=== PATIENT | female | born 1935 | race Caucasian/White ===

== ENCOUNTER → 2017-09-25 | Outpatient (CLI) | payer OTHER ==
[~2017-09-25] MED LIST: ALEVE220 MG PO; AVALIDE 300-251 EACH; BACTRIM DS TAB1 EACH PO; BOUDREAUXS10 GM TOP; CALCIUM 600 +1 EAC1 PO; COZAAR 50 MG TA50 M2 PO; ECOTRIN325 MG PO; GABAPENTIN 100100 MG PO; GLUCOPHAGE XR500 MG PO; HYDROCHLOROTHIA25 M2 PO; LATANOPROST 0.2.5 ML OPHTHALMIC; LEVAQUIN 500 M500 M2 PO; LIDOCAINE 22 %/30 GM MM; MELATONIN5 M1 PO; NORCO 5-325 TA1 EAC1 PO; NORCO 5-325 TA1 EACH PO; NORVASC 2.5 MG2.5 M1 PO; OXYBUTYNIN 5 MG5 M2 PO; PHENERGAN 25 MG25 M1 PO; POTASSIUM20 PO; SANTYL OINTMENT30 G1 TOP; TIROSINT75 MCG PO; TOPROL XL50 MG PO; TRANSDERM-SCOP1 EACH TRANSDERM; TYLENOL325 MG PO; ZOCOR 20 MG TAB20 M1
== END ==
LOC: M.WC 01:52
DX: E11.622 Type 2 diabetes mellitus with other skin ulcer (principal); L97.821 Non-pressure chronic ulcer of other part of left lower leg limited to breakdown of skin; I87.332 Chronic venous hypertension (idiopathic) with ulcer and inflammation of left lower extremity; E11.39 Type 2 diabetes mellitus with other diabetic ophthalmic complication; H40.9 Unspecified glaucoma; E03.9 Hypothyroidism, unspecified; Z87.891 Personal history of nicotine dependence

== ENCOUNTER → 2017-10-09 | Outpatient (CLI) | payer OTHER | LOC: M.WC 01:56 | DX: E11.622 Type 2 diabetes mellitus with other skin ulcer (principal); I87.332 Chronic venous hypertension (idiopathic) with ulcer and inflammation of left lower extremity; L97.821 Non-pressure chronic ulcer of other part of left lower leg limited to breakdown of skin; E11.39 Type 2 diabetes mellitus with other diabetic ophthalmic complication; H40.9 Unspecified glaucoma; E03.9 Hypothyroidism, unspecified; Z87.891 Personal history of nicotine dependence ==

== ENCOUNTER → 2017-10-23 | Outpatient (CLI) | payer OTHER | LOC: M.WC 05:25 | DX: E11.622 Type 2 diabetes mellitus with other skin ulcer (principal); L97.821 Non-pressure chronic ulcer of other part of left lower leg limited to breakdown of skin; I87.332 Chronic venous hypertension (idiopathic) with ulcer and inflammation of left lower extremity; E11.39 Type 2 diabetes mellitus with other diabetic ophthalmic complication; H40.9 Unspecified glaucoma; E03.9 Hypothyroidism, unspecified; Z87.891 Personal history of nicotine dependence ==

== ENCOUNTER → 2017-11-20 | Outpatient (CLI) | payer OTHER | LOC: M.WC 02:25 | DX: I87.332 Chronic venous hypertension (idiopathic) with ulcer and inflammation of left lower extremity (principal); E11.622 Type 2 diabetes mellitus with other skin ulcer; L97.821 Non-pressure chronic ulcer of other part of left lower leg limited to breakdown of skin; L95.0 Livedoid vasculitis; E03.9 Hypothyroidism, unspecified; Z87.891 Personal history of nicotine dependence ==

== ENCOUNTER → 2017-12-11 | Outpatient (CLI) | payer OTHER | LOC: M.WC 01:42 | DX: E11.622 Type 2 diabetes mellitus with other skin ulcer (principal); L97.821 Non-pressure chronic ulcer of other part of left lower leg limited to breakdown of skin; I87.332 Chronic venous hypertension (idiopathic) with ulcer and inflammation of left lower extremity; E11.39 Type 2 diabetes mellitus with other diabetic ophthalmic complication; H40.9 Unspecified glaucoma; I10 Essential (primary) hypertension; L95.0 Livedoid vasculitis; E03.9 Hypothyroidism, unspecified; Z87.891 Personal history of nicotine dependence ==

== ENCOUNTER → 2017-12-17 | Outpatient (CLI) | payer OTHER | LOC: M.ULTRA 12:39 | DX: I70.203 Unspecified atherosclerosis of native arteries of extremities, bilateral legs (principal); I87.2 Venous insufficiency (chronic) (peripheral) ==

== ENCOUNTER → 2017-12-25 | Outpatient (CLI) | payer OTHER | LOC: M.WC 03:08 | DX: E11.622 Type 2 diabetes mellitus with other skin ulcer (principal); I87.332 Chronic venous hypertension (idiopathic) with ulcer and inflammation of left lower extremity; L97.821 Non-pressure chronic ulcer of other part of left lower leg limited to breakdown of skin; I87.2 Venous insufficiency (chronic) (peripheral); E11.39 Type 2 diabetes mellitus with other diabetic ophthalmic complication; H40.9 Unspecified glaucoma; I10 Essential (primary) hypertension; E03.9 Hypothyroidism, unspecified; L95.0 Livedoid vasculitis; Z87.891 Personal history of nicotine dependence ==

== ENCOUNTER → 2018-01-02 | Outpatient (CLI) | payer OTHER | LOC: M.WC 03:04 | DX: E11.622 Type 2 diabetes mellitus with other skin ulcer (principal); I87.332 Chronic venous hypertension (idiopathic) with ulcer and inflammation of left lower extremity; L97.821 Non-pressure chronic ulcer of other part of left lower leg limited to breakdown of skin; I87.2 Venous insufficiency (chronic) (peripheral); E11.39 Type 2 diabetes mellitus with other diabetic ophthalmic complication; H40.9 Unspecified glaucoma; I10 Essential (primary) hypertension; E03.9 Hypothyroidism, unspecified; L95.0 Livedoid vasculitis; Z87.891 Personal history of nicotine dependence ==

== ENCOUNTER → 2018-01-08 | Outpatient (CLI) | payer OTHER | LOC: M.WC 02:09 | DX: E11.622 Type 2 diabetes mellitus with other skin ulcer (principal); I87.332 Chronic venous hypertension (idiopathic) with ulcer and inflammation of left lower extremity; L97.821 Non-pressure chronic ulcer of other part of left lower leg limited to breakdown of skin; E11.39 Type 2 diabetes mellitus with other diabetic ophthalmic complication; H40.9 Unspecified glaucoma; E03.9 Hypothyroidism, unspecified; L95.0 Livedoid vasculitis; Z87.891 Personal history of nicotine dependence ==

== ENCOUNTER → 2018-01-16 | Outpatient (CLI) | payer OTHER | LOC: M.WC 02:50 | DX: E11.622 Type 2 diabetes mellitus with other skin ulcer (principal); I87.332 Chronic venous hypertension (idiopathic) with ulcer and inflammation of left lower extremity; L97.821 Non-pressure chronic ulcer of other part of left lower leg limited to breakdown of skin; E11.39 Type 2 diabetes mellitus with other diabetic ophthalmic complication; H40.9 Unspecified glaucoma; I10 Essential (primary) hypertension; L95.0 Livedoid vasculitis; E03.9 Hypothyroidism, unspecified; Z87.891 Personal history of nicotine dependence ==

== ENCOUNTER → 2018-02-12 | Outpatient (CLI) | payer OTHER | LOC: M.RAD 10:41 | DX: M47.896 Other spondylosis, lumbar region (principal); M47.897 Other spondylosis, lumbosacral region; M12.88 Other specific arthropathies, not elsewhere classified, other specified site; I70.0 Atherosclerosis of aorta; M25.78 Osteophyte, vertebrae ==

== ENCOUNTER → 2018-02-20 | Outpatient (CLI) | payer OTHER | LOC: M.WC 03:34 | DX: E11.622 Type 2 diabetes mellitus with other skin ulcer (principal); I87.332 Chronic venous hypertension (idiopathic) with ulcer and inflammation of left lower extremity; L97.821 Non-pressure chronic ulcer of other part of left lower leg limited to breakdown of skin; E11.39 Type 2 diabetes mellitus with other diabetic ophthalmic complication; H40.9 Unspecified glaucoma; L95.0 Livedoid vasculitis; I10 Essential (primary) hypertension; E03.9 Hypothyroidism, unspecified; Z87.891 Personal history of nicotine dependence ==

== ENCOUNTER → 2018-03-06 | Outpatient (CLI) | payer OTHER | LOC: M.WC 04:04 | DX: E11.622 Type 2 diabetes mellitus with other skin ulcer (principal); I87.332 Chronic venous hypertension (idiopathic) with ulcer and inflammation of left lower extremity; L97.821 Non-pressure chronic ulcer of other part of left lower leg limited to breakdown of skin; E11.39 Type 2 diabetes mellitus with other diabetic ophthalmic complication; H40.9 Unspecified glaucoma; I10 Essential (primary) hypertension; L95.0 Livedoid vasculitis; E03.9 Hypothyroidism, unspecified; Z87.891 Personal history of nicotine dependence ==

== ENCOUNTER 2018-03-29 06:24 | Observation (INO) | payer OTHER ==
[~2018-03-29] VITALS: Ht 139.7 cm; Wt 62.1 kg
[~2018-03-29 06:24] MED LIST changes: -NORCO 5-325 TA1 EACH PO; -PHENERGAN 25 MG25 M1 PO; -TRANSDERM-SCOP1 EACH TRANSDERM; -TYLENOL325 MG PO
[2018-03-29 06:46] LABS: HEMATOCRIT 39.9 % (37.0-47.0); HEMOGLOBIN 13.6 gm/dL (12.0-15.0); MCH 31.2 pg (26.0-34.0); MCV 91.8 fL (80.0-100.0); MPV 7.4 fl. (7.2-11.1); RBC 4.34 mil/uL (4.20-5.00); RDW-CV 14.4 % (10.5-14.5); WBC 6.6 thou/uL (4.0-11.0)
[2018-03-29 06:54] LABS: CALCIUM 9.3 mg/dL (8.5-10.1); CREATININE 0.8 mg/dL (0.6-1.3)
[2018-03-29 06:58] LABS: ALBUMIN 3.7 g/dL (3.4-5.0); TOTAL BILIRUBIN 0.5 mg/dL (<0.1-1.0); TOTAL PROTEIN 7.5 g/dL (6.4-8.2)
[2018-03-29 07:08] VITALS: BP 149/89
--- NOTE | 2018-03-29 10:49 | EKG ---
[place] [address] ELECTROCARDIOGRAM REPORT Name: LUISANA HANNA Room: [address] M.R.#: [id number] Admission: 03/29/18 Attend Phys: Bailey Delgado Discharge: Date of : 37 Report #: [id number] THIS REPORT FOR: //name// [facility] Test Date: 2018-03-29 Test Time: 07:38:03 Pat Name: LUISANA HANNA Department: Room: Gender: F Mechanical Drafter: : 1935 Requested By: Jn Lamb Order Number: [id number] Juanita MD: Carmine Huddleston Measurements Intervals [place] Rate: 68 P: 48 MO: 194 QRS: 4 QRSD: 79 T: -3 QT: 380 QTc: 405 Interpretive Statements Sinus rhythm LVH by voltage Inferior infarct, old No previous ECG available for comparison Electronically Signed On 03-29-2018 10:49:45 CDT by Carmine Huddleston [email or web address] <ELECTRONICALLY SIGNED> By: Carmine Huddleston MD, [facility] 03/29/18 1049 0738 0738 Carmine Huddleston MD, FACC /EPI
--- NOTE | 2018-03-29 11:20 | NUR ---
ADMIT NOTE - PT HAD AN DEEP CLEANING AND PLACEMENT OF WOUND VAC OF ULCER TO LLE. PT UNABLE TO TOLERATE PAIN SO SHE WAS ADMITTED FOR PAIN CONTROL. PT PLACED ON PULSE OX D/T DESAT WHEN GIVEN PAIN MEDS IN PACU. O2 PLACED AT 2L WITH A SAT OF 97%. WOUND VAC IN PLACE AND WORKING APPROPRIATELY. AND SISTER AT BEDSIDE.
[2018-03-29 16:00] VITALS: BP 139/56
--- NOTE | 2018-03-29 17:21 | NUR ---
ALICIA/ZENA DELIVERED WOUND VAC TO PT.ROOM SHORTLY AFTER PT.ARRIVED TO ROOM FROM PACU. NOTIFIED FAHEEM MCKOY PER ORDER. IN AT THIS TIME AND SAID SAID PT.COULD BE DISCHARGED ONCE WOUND VAC ARRANGED. FAHEEM GONE FOR THE DAY. [facility] CAME AND PLACED HOME WOUND VAC TO WOUND. POSSIBLE DISCHARGE IN AM.
--- NOTE | 2018-03-29 17:58 | NUR ---
SHIFT NOTE - PT FEELING BETTER THIS EVENING. PT GIVEN HYDROCODONE 2 TABS ONCE THIS SHIFT, AND ZOFRAN 4MG ONCE. PT C/O INTERMITTENT MUSCLE CRAMPS IN RIGHT LEG. KRISTINE PARDO FROM WOUND CARE CHANGED HOSPITAL WOUND VAC TO A HOME WOUND VAC IN ANTICIPATION OF DISCHARGE TOMORROW. FAMILY PRESENT AT BEDSIDE THIS EVENING. PT TOLERATING HEART HEALTHY DIET.
[2018-03-29 20:00] VITALS: BP 168/70
--- NOTE | 2018-03-30 06:26 | NUR ---
Patient verbalizes that "no one has told me I can get up" Complaints of pain through the night, controlled with oral pain medications. Unsure of how much of what patient says is true. Stated that she "did not want the bedpan." Specifically asked the NEWS LIBRARIAN's to give her the bedpan stating "I cannot get up" Lots of education given to patient. NEWS LIBRARIAN's offered to get her up to the restroom. Also states that her son "Is a wound care DR with his own clinic in [place]" She then stated that he was an anesthesiologist.
[2018-03-30 10:00] VITALS: BP 126/84
[2018-03-30 10:42] VITALS: BP 126/84
[2018-03-30] MEDS ORDERED: PHENERGAN 25 MG25 M1 PO (11:50)
[2018-03-30] MEDS ORDERED: NORCO 5-325 TA1 EACH PO (11:50)
[2018-03-30] MEDS ORDERED: TRANSDERM-SCOP1 EACH TRANSDERM (11:50)
[2018-03-30 12:26] VITALS: BP 126/84
[2018-03-30] MEDS ORDERED: TYLENOL325 MG PO (12:26)
[2018-03-30 12:31] VITALS: BP 126/84
[2018-03-30 12:50] VITALS: BP 126/84
--- NOTE | 2018-03-30 13:24 | NUR ---
Pt to dc home with today. services to follow RN for wound care. MOOSE faxed referral, orders, med list to [facility] [phone] and [phone].
--- NOTE | 2018-03-30 14:19 | NUR ---
PATIENT IS ALERT AND ORIENTED TODAY, PLEASANT BUT VERY ANXIOUS, SO IS . VITAL SIGNS HAVE BEEN STABLE ON ROOM AIR. SOME COMPLAINTS OF PAIN THAT IS CONTROLLED WITH ORAL PAIN MEDICATIONS. WOUND VAC QUIT WORKING SO AND INTERNATIONAL RELATIONS PROFESSOR CALLED ZENA, APRIA CAME BUT THE WOUND VAC WAS ALREADY REMOVED DUE TO BE OFF SO LONG. INTERNATIONAL RELATIONS PROFESSOR SPOKE TO PROVIDER AND DIRECTIONS FOR DRESSING AND FOLLOW UP CARE GIVEN. WOUND WAS DRESSED PER ORDERS FROM PROVIDER, WOUND CENTER CALLED AND MESSAGE LEFT FOR APPOINEMENT WITH DR GREER ON SUNDAY. PATIENT IS BEING DISCHARGED TO HOME WITH HOME HEALTH, DISCHARGE INSTRUCTIONS AND PRESCRIPTIONS GIVEN. MANY QUESTIONS ANSWERED FOR PATIENT AND SPOUSE. PATIENT LEFT VIA WHEEL CHAIR WITH TO HOME WITH HOME HEALTH.
[2018-03-30 14:26] VITALS: BP 126/84
--- NOTE | 2018-04-10 08:35 | OP ---
[facility] [address] [place] [address] OPERATIVE REPORT Name: LUISANA HANNA Room: [address] Angie Damon#: [id number] Admission: 03/29/18 Attend Phys: Bailey Delgado Discharge: 03/30/18 Date of : 37 Report #: [id number] THIS REPORT FOR: //name// CC: Alison Preciado DATE OF SERVICE: 03/29/2018 PREOPERATIVE DIAGNOSIS: Venous insufficiency with large venous stasis ulcer to the left lower extremity. POSTOPERATIVE DIAGNOSIS: Venous insufficiency with large venous stasis ulcer to the left lower extremity. SURGEON: Jn Lamb DO. AGRICULTURE RESEARCH DIRECTOR: None. PROCEDURES: 1. Excisional debridement, left lower extremity of a posterior calf ulcer, measuring 6 cm x 2 cm, excising tendon, muscle, subcutaneous tissue and fascia. 2. Excisional debridement of an anterolateral ulcer, measuring 4 cm x 3 cm to the subcutaneous level. 3. An anterior medial ulcer, measuring 1 cm x 1 cm to the subcutaneous level. Total debridement area of 13 cm2 for subcutaneous level. 4. Application of negative pressure wound therapy requiring 2 bridges. ANESTHESIA: General endotracheal anesthesia. ESTIMATED BLOOD LOSS: Minimal. SPECIMEN: None. COMPLICATIONS: None. CONDITION: Stable. DISPOSITION: Floor. INDICATIONS FOR THE PROCEDURE AND CONSENT: The patient is an 82-year-old female with chronic venous stasis ulcers of the left lower extremity. She has undergone evaluation by Dermatology, aggressive wound therapy. Her care has been limited somewhat by her ability to tolerate debridement in the Wound Care Center as well as scheduling difficulties regarding her surgery. Risks and benefits of debridement with wound VAC therapy were discussed with the patient, infection, bleeding, pain, need for adherence to [place] [address] OPERATIVE REPORT Name: LUISANA HANNA Room: [address] Angie Damon#: [id number] Admission: 03/29/18 Attend Phys: Bailey Delgado Discharge: 03/30/18 Date of : 37 Report #: [id number] possible limb loss despite intervention therapy. The patient wished to proceed, was consented and scheduled. DESCRIPTION OF PROCEDURE: After timeout was performed, the patient was placed in supine position with sterile prep and drape of the left lower extremity. The posterior ulcer was approached first. A 10 blade scalpel was used to excise fibrin, slough, devitalized tissue, subcutaneous tissue, tendon and fascia to finally expose healthy-appearing muscular tissue and skin edges. A total area debrided was 12 cm2. Bleeding was controlled by Bovie electrocautery and pressure. Attention was then turned to the anterolateral ulcer, measuring 4 cm x 3 cm, totalling 12 cm2. The 10 blade scalpel was again used to excise fibrous, slough, devitalized tissue and subcutaneous tissue. This wound had significant scar within it and when I probed below the scar tissue, I did not appear to find any healthy tissue underneath. There was felt that the skin may need to grow on from the side and central granulation may be difficult. I then controlled the hemorrhage with Bovie electrocautery. There was a small medial ulcer measuring 1 x 1, which I also debrided with 15 blade scalpel, excising subcutaneous tissue, fibrin, slough and devitalized tissue. Hemostasis on this was controlled with Bovie electrocautery. After all debridements were completed, I applied a wound VAC therapy, being careful to protect any skin between bridges of all 3 ulcers. Of note, within the posterior ulcer, there was a highly pressurized small saphenous vein, which I excised completely beyond the edges of the wound as well. The patient tolerated the procedure well. Lap, needle and instrument counts were correct. The patient was transferred to recovery in stable condition. <ELECTRONICALLY SIGNED> By: Jn Lamb DO 04/10/18 0835 1038 1143Joeugenia Lamb DO /nt
== END 2018-03-30 14:26 | disposition home health service (06) ==
LOC: M.SUR 06:24 → M.TBA 10:03 → M.ORTHSURG 10:03 → M.SUR 13:40 → M.ORTHSURG 03-30 14:26
PROVIDERS: Surgery; ADMIT Internal Medicine
DX: I83.028 Varicose veins of left lower extremity with ulcer other part of lower leg (principal); L97.829 Non-pressure chronic ulcer of other part of left lower leg with unspecified severity; I73.9 Peripheral vascular disease, unspecified; E11.9 Type 2 diabetes mellitus without complications; I80.9 Phlebitis and thrombophlebitis of unspecified site; I87.2 Venous insufficiency (chronic) (peripheral); E03.9 Hypothyroidism, unspecified

== ENCOUNTER → 2018-04-01 | Outpatient (CLI) | payer OTHER ==
[~2018-04-01] MED LIST changes: +NORCO 5-325 TA1 EACH PO; +PHENERGAN 25 MG25 M1 PO; +TRANSDERM-SCOP1 EACH TRANSDERM; +TYLENOL325 MG PO
== END ==
LOC: M.WC 10:57
DX: I87.332 Chronic venous hypertension (idiopathic) with ulcer and inflammation of left lower extremity (principal); E11.622 Type 2 diabetes mellitus with other skin ulcer; L97.821 Non-pressure chronic ulcer of other part of left lower leg limited to breakdown of skin; E11.39 Type 2 diabetes mellitus with other diabetic ophthalmic complication; H42 Glaucoma in diseases classified elsewhere; E03.9 Hypothyroidism, unspecified; L95.0 Livedoid vasculitis; Z87.891 Personal history of nicotine dependence

== ENCOUNTER → 2018-04-03 | Outpatient (CLI) | payer OTHER | LOC: M.WC 05:10 | DX: E11.622 Type 2 diabetes mellitus with other skin ulcer (principal); I87.332 Chronic venous hypertension (idiopathic) with ulcer and inflammation of left lower extremity; L97.821 Non-pressure chronic ulcer of other part of left lower leg limited to breakdown of skin; L95.0 Livedoid vasculitis; E11.39 Type 2 diabetes mellitus with other diabetic ophthalmic complication; H40.89 Other specified glaucoma; H42 Glaucoma in diseases classified elsewhere; I10 Essential (primary) hypertension; E03.9 Hypothyroidism, unspecified; Z87.891 Personal history of nicotine dependence ==

== ENCOUNTER → 2018-04-10 | Outpatient (CLI) | payer OTHER | LOC: M.WC 04:46 | DX: E11.622 Type 2 diabetes mellitus with other skin ulcer (principal); I87.332 Chronic venous hypertension (idiopathic) with ulcer and inflammation of left lower extremity; L97.822 Non-pressure chronic ulcer of other part of left lower leg with fat layer exposed; E11.39 Type 2 diabetes mellitus with other diabetic ophthalmic complication; H40.9 Unspecified glaucoma; H42 Glaucoma in diseases classified elsewhere; L95.0 Livedoid vasculitis; I10 Essential (primary) hypertension; E03.9 Hypothyroidism, unspecified; Z87.891 Personal history of nicotine dependence ==

== ENCOUNTER → 2018-04-17 | Outpatient (CLI) | payer OTHER | LOC: M.WC 02:59 | DX: E11.622 Type 2 diabetes mellitus with other skin ulcer (principal); I87.332 Chronic venous hypertension (idiopathic) with ulcer and inflammation of left lower extremity; L97.821 Non-pressure chronic ulcer of other part of left lower leg limited to breakdown of skin; L95.0 Livedoid vasculitis; E11.39 Type 2 diabetes mellitus with other diabetic ophthalmic complication; H42 Glaucoma in diseases classified elsewhere; E03.9 Hypothyroidism, unspecified; Z87.891 Personal history of nicotine dependence ==

== ENCOUNTER → 2018-04-24 | Outpatient (CLI) | payer OTHER | LOC: M.WC 04:07 | DX: E11.622 Type 2 diabetes mellitus with other skin ulcer (principal); I87.332 Chronic venous hypertension (idiopathic) with ulcer and inflammation of left lower extremity; L97.821 Non-pressure chronic ulcer of other part of left lower leg limited to breakdown of skin; E11.39 Type 2 diabetes mellitus with other diabetic ophthalmic complication; H42 Glaucoma in diseases classified elsewhere; L90.5 Scar conditions and fibrosis of skin; E03.9 Hypothyroidism, unspecified; Z87.891 Personal history of nicotine dependence ==

== ENCOUNTER → 2018-05-01 | Outpatient (CLI) | payer OTHER | LOC: M.WC 03:22 | DX: E11.622 Type 2 diabetes mellitus with other skin ulcer (principal); I87.332 Chronic venous hypertension (idiopathic) with ulcer and inflammation of left lower extremity; L97.821 Non-pressure chronic ulcer of other part of left lower leg limited to breakdown of skin; E11.39 Type 2 diabetes mellitus with other diabetic ophthalmic complication; H40.9 Unspecified glaucoma; H42 Glaucoma in diseases classified elsewhere; L95.0 Livedoid vasculitis; E03.9 Hypothyroidism, unspecified; Z87.891 Personal history of nicotine dependence ==

== ENCOUNTER → 2018-05-08 | Outpatient (CLI) | payer OTHER | LOC: M.WC 01:35 | DX: E11.622 Type 2 diabetes mellitus with other skin ulcer (principal); L97.821 Non-pressure chronic ulcer of other part of left lower leg limited to breakdown of skin; I87.332 Chronic venous hypertension (idiopathic) with ulcer and inflammation of left lower extremity; L95.0 Livedoid vasculitis; E11.39 Type 2 diabetes mellitus with other diabetic ophthalmic complication; H40.9 Unspecified glaucoma; E03.9 Hypothyroidism, unspecified; Z87.891 Personal history of nicotine dependence ==

== ENCOUNTER 2018-05-10 09:54 | Inpatient (IN) | payer OTHER ==
[~2018-05-10] VITALS: Ht 139.7 cm; Wt 60.3 kg
[2018-05-10 10:50] LABS: ABSOLUTE EOSINOPHILS 0.1 thou/uL (0.0-0.7); ABSOLUTE LYMPHOCYTES 1.2 thou/uL (0.8-5.3); ABSOLUTE MONOCYTES 0.5 thou/uL (0.0-1.2); ABSOLUTE NEUTROPHILS 6.3 thou/uL (1.6-8.1); BASOPHILS 0.6 %; EOSINOPHILS 1.7 %; HEMATOCRIT 40.3 % (37.0-47.0); HEMOGLOBIN 13.7 gm/dL (12.0-15.0); LYMPHOCYTES 14.1 %; MCH 30.6 pg (26.0-34.0); MCHC 33.9 g/dL (28.0-37.0); MCV 90.3 fL (80.0-100.0); MONOCYTES 5.8 %; MPV 7.6 fl. (7.2-11.1); NUCLEATED RBCS 0 /100WBC; PLATELET COUNT* 289 thou/uL (150-400); POLYS 77.8 %; RBC 4.46 mil/uL (4.20-5.00); RDW-CV 14.4 % (10.5-14.5); WBC 8.2 thou/uL (4.0-11.0)
[2018-05-10 10:53] LABS: CALCIUM 9.7 mg/dL (8.5-10.1); CREATININE 0.8 mg/dL (0.6-1.3); POTASSIUM 3.7 mmol/L (3.5-5.1)
[2018-05-10 16:15] VITALS: BP 137/64
[2018-05-10 20:00] VITALS: BP 115/49
[2018-05-11 00:02] VITALS: BP 106/45
[2018-05-11 04:47] LABS: HEMATOCRIT 32.2 % (37.0-47.0); MCH 31.5 pg (26.0-34.0); MCHC 34.6 g/dL (28.0-37.0); MCV 91.1 fL (80.0-100.0); MPV 8.1 fl. (7.2-11.1); RBC 3.54 mil/uL (4.20-5.00); RDW-CV 13.9 % (10.5-14.5)
[2018-05-11 05:03] VITALS: BP 114/53
[2018-05-11 05:04] LABS: HEMOGLOBIN 11.1 gm/dL (12.0-15.0)
[2018-05-11 05:08] LABS: CALCIUM 8.3 mg/dL (8.5-10.1); POTASSIUM 4.3 mmol/L (3.5-5.1)
[2018-05-11 05:13] LABS: ALBUMIN 2.9 g/dL (3.4-5.0); TOTAL BILIRUBIN 0.3 mg/dL (<0.1-1.0); TOTAL PROTEIN 5.4 g/dL (6.4-8.2)
[2018-05-11 08:45] VITALS: BP 136/41
[2018-05-11 17:37] VITALS: BP 138/58
[2018-05-11 19:45] VITALS: BP 165/61
[2018-05-12 01:05] VITALS: BP 143/56
[2018-05-12 03:45] LABS: HEMATOCRIT 35.5 % (37.0-47.0); HEMOGLOBIN 12.1 gm/dL (12.0-15.0); MCH 31.5 pg (26.0-34.0); MCHC 34.2 g/dL (28.0-37.0); MCV 92.1 fL (80.0-100.0); MPV 7.7 fl. (7.2-11.1); RBC 3.85 mil/uL (4.20-5.00); RDW-CV 14.4 % (10.5-14.5); WBC 7.2 thou/uL (4.0-11.0)
[2018-05-12 04:17] LABS: ALBUMIN 3.1 g/dL (3.4-5.0); CALCIUM 8.7 mg/dL (8.5-10.1); CREATININE 0.8 mg/dL (0.6-1.3); POTASSIUM 4.6 mmol/L (3.5-5.1); TOTAL BILIRUBIN 0.2 mg/dL (<0.1-1.0); TOTAL PROTEIN 5.8 g/dL (6.4-8.2)
[2018-05-12 05:00] VITALS: BP 157/79
[2018-05-12 08:30] VITALS: BP 151/75
[2018-05-12 15:17] VITALS: BP 164/58
[2018-05-12 20:00] VITALS: BP 160/58
[2018-05-13 00:16] VITALS: BP 143/57
[2018-05-13 04:10] LABS: HEMATOCRIT 33.4 % (37.0-47.0); HEMOGLOBIN 11.5 gm/dL (12.0-15.0); MCH 31.5 pg (26.0-34.0); MCHC 34.5 g/dL (28.0-37.0); MCV 91.4 fL (80.0-100.0); MPV 7.7 fl. (7.2-11.1); RBC 3.66 mil/uL (4.20-5.00); RDW-CV 14.6 % (10.5-14.5); WBC 7.4 thou/uL (4.0-11.0)
[2018-05-13 04:50] VITALS: BP 133/56
[2018-05-13 04:52] LABS: CALCIUM 8.7 mg/dL (8.5-10.1); CREATININE 0.8 mg/dL (0.6-1.3); MAGNESIUM 1.1 mg/dL (1.8-2.4); POTASSIUM 4.7 mmol/L (3.5-5.1); TOTAL BILIRUBIN 0.2 mg/dL (<0.1-1.0); TOTAL PROTEIN 5.7 g/dL (6.4-8.2)
[2018-05-13 08:05] VITALS: BP 141/47
[2018-05-13 09:56] VITALS: BP 141/47
--- NOTE | 2018-06-14 14:49 | OP ---
[address] [address] OPERATIVE REPORT Name: LUISANA HANNA Room: [address] [place] M.R.#: [id number] Admission: 05/10/18 Attend Phys: Whitley Doan MD Discharge: 05/13/18 Date of : 37 Report #: [id number] THIS REPORT FOR: //name// CC: Jn Escalante DATE OF SERVICE: 05/10/2018 PREOPERATIVE DIAGNOSIS: Venous insufficiency with nonhealing wounds, left lower extremity. POSTOPERATIVE DIAGNOSIS: Venous insufficiency with nonhealing wounds, left lower extremity. SURGEON: Jn Lamb DO. LOADING CHECKER: None. PROCEDURE: Split thickness skin graft, left lower extremity. Total area grafted, three areas measuring 4 x 6 cm totalling 24 cm2, 1 x 1 cm totalling 1 cm2, 3 x 6 cm totalling 18 cm2. ESTIMATED BLOOD LOSS: Minimal. SPECIMEN: None. COMPLICATIONS: None. CONDITION: Stable. DISPOSITION: Floor. INDICATIONS FOR THE PROCEDURE AND CONSENT: The patient is an 82-year-old female who presented with venous insufficiency and large lower extremity wounds. She has been managed in the Wound Care Center for many months, has now finally granulated her wounds with wound VAC therapy and debridements. She is now ready for skin grafting. Risks and benefits of this were discussed with the patient, infection, bleeding thigh pain, nonhealing of thigh harvest site, nonhealing of wounds despite intervention. The patient wished to proceed, was consented and scheduled. PROCEDURE IN DETAIL: After timeout was performed, the patient was placed in supine position with sterile prep and drape of left lower extremity. The skin graft sites were prepared by removing slough with a 10 blade scalpel. The thigh was prepared by applying oil emollient to the skin and [place] [address] OPERATIVE REPORT Name: LUISANA HANNA Room: [address]#: [id number] Admission: 05/10/18 Attend Phys: Whitley Doan MD Discharge: 05/13/18 Date of : 36 Report #: [id number] tongue blade. A split thickness skin harvester was applied to the skin for a length of approximately 6-8 cm. An epinephrine soaked gauze then applied to the skin harvest site to assist with hemostasis. Skin graft was then prepared on the back table using a 2:1 meshing technique, was then meshed. The split thickness skin graft was then applied to each of the skin graft sites as measured above. The skin grafts were then attached to the base of the wound with 4-0 Monocryl sutures. The grafts were then bolstered by applying nonadherent gauze and a wound VAC, which required bridging between the three graft sites. The total area grafted was 38 cm2. A light Tirso compression was applied to protect the skin from the tubing as well as to control mild edema. The patient tolerated the procedure well and was transferred to recovery room in stable condition. <ELECTRONICALLY SIGNED> By: Jn Lamb DO 06/14/18 1449 1308 1330Jn Lamb DO /nt
== END 2018-05-13 16:19 | disposition home health service (06) | DRG 574 ==
LOC: M.SUR 09:54 → M.TBA 16:37 → M.ORTHSURG 16:37
PROVIDERS: Surgery; ADMIT Internal Medicine
PROC: 0HXLXZZ Transfer Left Lower Leg Skin, External Approach (ICD-10-PCS; principal; 2018-05-10)
DX: L97.829 Non-pressure chronic ulcer of other part of left lower leg with unspecified severity (principal); E44.1 Mild protein-calorie malnutrition; E03.9 Hypothyroidism, unspecified; H40.9 Unspecified glaucoma; I87.8 Other specified disorders of veins; K59.00 Constipation, unspecified; Z96.1 Presence of intraocular lens; Z98.42 Cataract extraction status, left eye; Z68.30 Body mass index [BMI] 30.0-30.9, adult; Z98.41 Cataract extraction status, right eye; Z88.0 Allergy status to penicillin; Z88.2 Allergy status to sulfonamides; Z88.8 Allergy status to other drugs, medicaments and biological substances; Z88.1 Allergy status to other antibiotic agents; Z91.040 Latex allergy status

== ENCOUNTER → 2018-05-15 | Outpatient (CLI) | payer OTHER | LOC: M.WC 04:35 | DX: T81.89XA Other complications of procedures, not elsewhere classified, initial encounter (principal); E11.622 Type 2 diabetes mellitus with other skin ulcer; I87.332 Chronic venous hypertension (idiopathic) with ulcer and inflammation of left lower extremity; L97.821 Non-pressure chronic ulcer of other part of left lower leg limited to breakdown of skin; E11.39 Type 2 diabetes mellitus with other diabetic ophthalmic complication; H40.9 Unspecified glaucoma; H42 Glaucoma in diseases classified elsewhere; L95.0 Livedoid vasculitis; I10 Essential (primary) hypertension; E03.9 Hypothyroidism, unspecified; Z87.891 Personal history of nicotine dependence; Y92.89 Other specified places as the place of occurrence of the external cause; Y83.8 Other surgical procedures as the cause of abnormal reaction of the patient, or of later complication, without mention of misadventure at the time of the procedure ==

== ENCOUNTER → 2018-05-22 | Outpatient (CLI) | payer OTHER | LOC: M.WC 04:51 | DX: T86.828 Other complications of skin graft (allograft) (autograft) (principal); E11.622 Type 2 diabetes mellitus with other skin ulcer; L97.321 Non-pressure chronic ulcer of left ankle limited to breakdown of skin; I87.332 Chronic venous hypertension (idiopathic) with ulcer and inflammation of left lower extremity; E11.39 Type 2 diabetes mellitus with other diabetic ophthalmic complication; L95.0 Livedoid vasculitis; E03.9 Hypothyroidism, unspecified; H40.9 Unspecified glaucoma; Z87.891 Personal history of nicotine dependence; Y83.2 Surgical operation with anastomosis, bypass or graft as the cause of abnormal reaction of the patient, or of later complication, without mention of misadventure at the time of the procedure ==

== ENCOUNTER → 2018-05-24 | Outpatient (CLI) | payer OTHER | LOC: M.WC 02:18 | DX: T86.828 Other complications of skin graft (allograft) (autograft) (principal); E11.622 Type 2 diabetes mellitus with other skin ulcer; L97.821 Non-pressure chronic ulcer of other part of left lower leg limited to breakdown of skin; L97.321 Non-pressure chronic ulcer of left ankle limited to breakdown of skin; I87.332 Chronic venous hypertension (idiopathic) with ulcer and inflammation of left lower extremity; L95.0 Livedoid vasculitis; E11.39 Type 2 diabetes mellitus with other diabetic ophthalmic complication; H40.9 Unspecified glaucoma; E03.9 Hypothyroidism, unspecified; Z87.891 Personal history of nicotine dependence; Y83.2 Surgical operation with anastomosis, bypass or graft as the cause of abnormal reaction of the patient, or of later complication, without mention of misadventure at the time of the procedure ==

== ENCOUNTER → 2018-05-27 | Outpatient (CLI) | payer OTHER | LOC: M.WC 01:27 | DX: T86.828 Other complications of skin graft (allograft) (autograft) (principal); E11.622 Type 2 diabetes mellitus with other skin ulcer; L97.321 Non-pressure chronic ulcer of left ankle limited to breakdown of skin; I87.332 Chronic venous hypertension (idiopathic) with ulcer and inflammation of left lower extremity; L97.821 Non-pressure chronic ulcer of other part of left lower leg limited to breakdown of skin; L95.0 Livedoid vasculitis; E11.39 Type 2 diabetes mellitus with other diabetic ophthalmic complication; H40.9 Unspecified glaucoma; E03.9 Hypothyroidism, unspecified; Z87.891 Personal history of nicotine dependence; Y83.2 Surgical operation with anastomosis, bypass or graft as the cause of abnormal reaction of the patient, or of later complication, without mention of misadventure at the time of the procedure ==

== ENCOUNTER → 2018-05-29 | Outpatient (CLI) | payer OTHER | LOC: M.WC 03:05 | DX: T86.828 Other complications of skin graft (allograft) (autograft) (principal); E11.622 Type 2 diabetes mellitus with other skin ulcer; L97.321 Non-pressure chronic ulcer of left ankle limited to breakdown of skin; L97.821 Non-pressure chronic ulcer of other part of left lower leg limited to breakdown of skin; I87.332 Chronic venous hypertension (idiopathic) with ulcer and inflammation of left lower extremity; L95.0 Livedoid vasculitis; E11.39 Type 2 diabetes mellitus with other diabetic ophthalmic complication; H40.9 Unspecified glaucoma; E03.9 Hypothyroidism, unspecified; Z87.891 Personal history of nicotine dependence; Y83.2 Surgical operation with anastomosis, bypass or graft as the cause of abnormal reaction of the patient, or of later complication, without mention of misadventure at the time of the procedure ==

== ENCOUNTER → 2018-05-31 | Outpatient (CLI) | payer OTHER | LOC: M.WC 02:55 | DX: T86.828 Other complications of skin graft (allograft) (autograft) (principal); E11.622 Type 2 diabetes mellitus with other skin ulcer; L97.321 Non-pressure chronic ulcer of left ankle limited to breakdown of skin; I87.332 Chronic venous hypertension (idiopathic) with ulcer and inflammation of left lower extremity; L97.821 Non-pressure chronic ulcer of other part of left lower leg limited to breakdown of skin; L95.0 Livedoid vasculitis; E11.39 Type 2 diabetes mellitus with other diabetic ophthalmic complication; H40.9 Unspecified glaucoma; E03.9 Hypothyroidism, unspecified; Z87.891 Personal history of nicotine dependence; Y83.2 Surgical operation with anastomosis, bypass or graft as the cause of abnormal reaction of the patient, or of later complication, without mention of misadventure at the time of the procedure ==

== ENCOUNTER → 2018-06-03 | Outpatient (CLI) | payer OTHER | LOC: M.WC 01:43 | DX: T86.828 Other complications of skin graft (allograft) (autograft) (principal); E11.622 Type 2 diabetes mellitus with other skin ulcer; L97.321 Non-pressure chronic ulcer of left ankle limited to breakdown of skin; I87.332 Chronic venous hypertension (idiopathic) with ulcer and inflammation of left lower extremity; L97.821 Non-pressure chronic ulcer of other part of left lower leg limited to breakdown of skin; L95.0 Livedoid vasculitis; E11.39 Type 2 diabetes mellitus with other diabetic ophthalmic complication; E03.9 Hypothyroidism, unspecified; H40.9 Unspecified glaucoma; Z87.891 Personal history of nicotine dependence; Y83.2 Surgical operation with anastomosis, bypass or graft as the cause of abnormal reaction of the patient, or of later complication, without mention of misadventure at the time of the procedure ==

== ENCOUNTER → 2018-06-05 | Outpatient (CLI) | payer OTHER | LOC: M.WC 05:18 | DX: T86.828 Other complications of skin graft (allograft) (autograft) (principal); E11.622 Type 2 diabetes mellitus with other skin ulcer; L97.821 Non-pressure chronic ulcer of other part of left lower leg limited to breakdown of skin; L97.321 Non-pressure chronic ulcer of left ankle limited to breakdown of skin; I87.332 Chronic venous hypertension (idiopathic) with ulcer and inflammation of left lower extremity; L95.0 Livedoid vasculitis; E11.39 Type 2 diabetes mellitus with other diabetic ophthalmic complication; H40.9 Unspecified glaucoma; E03.9 Hypothyroidism, unspecified; I10 Essential (primary) hypertension; Z87.891 Personal history of nicotine dependence; Y83.2 Surgical operation with anastomosis, bypass or graft as the cause of abnormal reaction of the patient, or of later complication, without mention of misadventure at the time of the procedure ==

== ENCOUNTER → 2018-06-12 | Outpatient (CLI) | payer OTHER | LOC: M.WC 10:30 | DX: T86.828 Other complications of skin graft (allograft) (autograft) (principal); E11.622 Type 2 diabetes mellitus with other skin ulcer; L97.821 Non-pressure chronic ulcer of other part of left lower leg limited to breakdown of skin; I87.332 Chronic venous hypertension (idiopathic) with ulcer and inflammation of left lower extremity; L95.0 Livedoid vasculitis; E11.39 Type 2 diabetes mellitus with other diabetic ophthalmic complication; H40.9 Unspecified glaucoma; E03.9 Hypothyroidism, unspecified; Z87.891 Personal history of nicotine dependence; Y83.2 Surgical operation with anastomosis, bypass or graft as the cause of abnormal reaction of the patient, or of later complication, without mention of misadventure at the time of the procedure ==

== ENCOUNTER → 2018-06-19 | Outpatient (CLI) | payer OTHER | LOC: M.WC 03:57 | DX: E11.622 Type 2 diabetes mellitus with other skin ulcer (principal); L97.821 Non-pressure chronic ulcer of other part of left lower leg limited to breakdown of skin; I87.332 Chronic venous hypertension (idiopathic) with ulcer and inflammation of left lower extremity; L95.0 Livedoid vasculitis; E11.39 Type 2 diabetes mellitus with other diabetic ophthalmic complication; E03.9 Hypothyroidism, unspecified; H40.9 Unspecified glaucoma; Z87.891 Personal history of nicotine dependence ==

== ENCOUNTER → 2018-06-26 | Outpatient (CLI) | payer OTHER | LOC: M.WC 01:36 | DX: E11.622 Type 2 diabetes mellitus with other skin ulcer (principal); L97.821 Non-pressure chronic ulcer of other part of left lower leg limited to breakdown of skin; I87.332 Chronic venous hypertension (idiopathic) with ulcer and inflammation of left lower extremity; L95.0 Livedoid vasculitis; E11.39 Type 2 diabetes mellitus with other diabetic ophthalmic complication; E03.9 Hypothyroidism, unspecified; H40.9 Unspecified glaucoma; Z87.891 Personal history of nicotine dependence ==

== ENCOUNTER → 2018-07-10 | Outpatient (CLI) | payer OTHER | LOC: M.WC 07-03 10:00 | DX: E11.622 Type 2 diabetes mellitus with other skin ulcer (principal); I87.332 Chronic venous hypertension (idiopathic) with ulcer and inflammation of left lower extremity; L97.821 Non-pressure chronic ulcer of other part of left lower leg limited to breakdown of skin; L95.0 Livedoid vasculitis; E11.39 Type 2 diabetes mellitus with other diabetic ophthalmic complication; H40.9 Unspecified glaucoma; H42 Glaucoma in diseases classified elsewhere; I10 Essential (primary) hypertension; E03.9 Hypothyroidism, unspecified; Z87.891 Personal history of nicotine dependence ==

== ENCOUNTER → 2018-07-17 | Outpatient (CLI) | payer OTHER | LOC: M.WC 03:00 | DX: E11.622 Type 2 diabetes mellitus with other skin ulcer (principal); I87.332 Chronic venous hypertension (idiopathic) with ulcer and inflammation of left lower extremity; L97.821 Non-pressure chronic ulcer of other part of left lower leg limited to breakdown of skin; L95.0 Livedoid vasculitis; E11.39 Type 2 diabetes mellitus with other diabetic ophthalmic complication; H40.9 Unspecified glaucoma; E03.9 Hypothyroidism, unspecified; I10 Essential (primary) hypertension; Z87.891 Personal history of nicotine dependence ==

== ENCOUNTER → 2018-07-24 | Outpatient (CLI) | payer OTHER | LOC: M.WC 03:09 | DX: E11.622 Type 2 diabetes mellitus with other skin ulcer (principal); I87.332 Chronic venous hypertension (idiopathic) with ulcer and inflammation of left lower extremity; L97.821 Non-pressure chronic ulcer of other part of left lower leg limited to breakdown of skin; L95.0 Livedoid vasculitis; E11.39 Type 2 diabetes mellitus with other diabetic ophthalmic complication; E03.9 Hypothyroidism, unspecified; H40.9 Unspecified glaucoma; I10 Essential (primary) hypertension; Z87.891 Personal history of nicotine dependence ==

== ENCOUNTER → 2018-07-31 | Outpatient (CLI) | payer OTHER | LOC: M.WC 05:05 | DX: E11.622 Type 2 diabetes mellitus with other skin ulcer (principal); I87.332 Chronic venous hypertension (idiopathic) with ulcer and inflammation of left lower extremity; L97.821 Non-pressure chronic ulcer of other part of left lower leg limited to breakdown of skin; L95.0 Livedoid vasculitis; E11.39 Type 2 diabetes mellitus with other diabetic ophthalmic complication; H40.9 Unspecified glaucoma; E03.9 Hypothyroidism, unspecified; I10 Essential (primary) hypertension; Z87.891 Personal history of nicotine dependence ==

== ENCOUNTER → 2018-08-07 | Outpatient (CLI) | payer OTHER | LOC: M.WC 05:04 | DX: E11.622 Type 2 diabetes mellitus with other skin ulcer (principal); I87.332 Chronic venous hypertension (idiopathic) with ulcer and inflammation of left lower extremity; L97.821 Non-pressure chronic ulcer of other part of left lower leg limited to breakdown of skin; L95.0 Livedoid vasculitis; E11.39 Type 2 diabetes mellitus with other diabetic ophthalmic complication; H40.9 Unspecified glaucoma; E03.9 Hypothyroidism, unspecified; I10 Essential (primary) hypertension; Z87.891 Personal history of nicotine dependence ==

== ENCOUNTER → 2018-08-14 | Outpatient (CLI) | payer OTHER | LOC: M.WC 03:16 | DX: E11.622 Type 2 diabetes mellitus with other skin ulcer (principal); I87.332 Chronic venous hypertension (idiopathic) with ulcer and inflammation of left lower extremity; L97.821 Non-pressure chronic ulcer of other part of left lower leg limited to breakdown of skin; L95.0 Livedoid vasculitis; E11.39 Type 2 diabetes mellitus with other diabetic ophthalmic complication; H40.9 Unspecified glaucoma; E03.9 Hypothyroidism, unspecified; I10 Essential (primary) hypertension; Z87.891 Personal history of nicotine dependence ==

== ENCOUNTER → 2018-08-21 | Outpatient (CLI) | payer OTHER | LOC: M.WC 04:31 | DX: I87.332 Chronic venous hypertension (idiopathic) with ulcer and inflammation of left lower extremity (principal); L97.821 Non-pressure chronic ulcer of other part of left lower leg limited to breakdown of skin; L95.0 Livedoid vasculitis; E11.39 Type 2 diabetes mellitus with other diabetic ophthalmic complication; H40.9 Unspecified glaucoma; E03.9 Hypothyroidism, unspecified; Z87.891 Personal history of nicotine dependence ==

== ENCOUNTER → 2018-08-28 | Outpatient (CLI) | payer OTHER | LOC: M.WC 02:49 | DX: E11.622 Type 2 diabetes mellitus with other skin ulcer (principal); I87.332 Chronic venous hypertension (idiopathic) with ulcer and inflammation of left lower extremity; L97.821 Non-pressure chronic ulcer of other part of left lower leg limited to breakdown of skin; L95.0 Livedoid vasculitis; E11.39 Type 2 diabetes mellitus with other diabetic ophthalmic complication; H40.9 Unspecified glaucoma; E03.9 Hypothyroidism, unspecified; Z87.891 Personal history of nicotine dependence ==

== ENCOUNTER → 2018-09-04 | Outpatient (CLI) | payer OTHER | LOC: M.WC 04:39 | DX: E11.622 Type 2 diabetes mellitus with other skin ulcer (principal); I87.332 Chronic venous hypertension (idiopathic) with ulcer and inflammation of left lower extremity; L97.821 Non-pressure chronic ulcer of other part of left lower leg limited to breakdown of skin; L95.0 Livedoid vasculitis; E11.39 Type 2 diabetes mellitus with other diabetic ophthalmic complication; H40.9 Unspecified glaucoma; E03.9 Hypothyroidism, unspecified; Z87.891 Personal history of nicotine dependence ==

== ENCOUNTER → 2018-09-11 | Outpatient (CLI) | payer OTHER | LOC: M.WC 01:52 | DX: E11.622 Type 2 diabetes mellitus with other skin ulcer (principal); I87.332 Chronic venous hypertension (idiopathic) with ulcer and inflammation of left lower extremity; L97.821 Non-pressure chronic ulcer of other part of left lower leg limited to breakdown of skin; L95.0 Livedoid vasculitis; E11.39 Type 2 diabetes mellitus with other diabetic ophthalmic complication; H40.9 Unspecified glaucoma; E03.9 Hypothyroidism, unspecified; Z87.891 Personal history of nicotine dependence ==

== ENCOUNTER → 2018-09-18 | Outpatient (CLI) | payer OTHER | LOC: M.WC 10:00 | DX: E11.622 Type 2 diabetes mellitus with other skin ulcer (principal); I87.332 Chronic venous hypertension (idiopathic) with ulcer and inflammation of left lower extremity; L97.821 Non-pressure chronic ulcer of other part of left lower leg limited to breakdown of skin; L95.0 Livedoid vasculitis; E11.39 Type 2 diabetes mellitus with other diabetic ophthalmic complication; H40.9 Unspecified glaucoma; E03.9 Hypothyroidism, unspecified; I10 Essential (primary) hypertension; Z87.891 Personal history of nicotine dependence ==

== ENCOUNTER → 2018-09-25 | Outpatient (CLI) | payer OTHER | LOC: M.WC 09:47 | DX: E11.622 Type 2 diabetes mellitus with other skin ulcer (principal); I87.332 Chronic venous hypertension (idiopathic) with ulcer and inflammation of left lower extremity; L97.821 Non-pressure chronic ulcer of other part of left lower leg limited to breakdown of skin; L95.0 Livedoid vasculitis; I10 Essential (primary) hypertension; E03.9 Hypothyroidism, unspecified; E11.39 Type 2 diabetes mellitus with other diabetic ophthalmic complication; H40.9 Unspecified glaucoma; H42 Glaucoma in diseases classified elsewhere; Z87.891 Personal history of nicotine dependence ==

== ENCOUNTER → 2018-10-02 | Outpatient (CLI) | payer OTHER | LOC: M.WC 04:35 | DX: E11.622 Type 2 diabetes mellitus with other skin ulcer (principal); I87.332 Chronic venous hypertension (idiopathic) with ulcer and inflammation of left lower extremity; L97.828 Non-pressure chronic ulcer of other part of left lower leg with other specified severity; L95.0 Livedoid vasculitis; E11.39 Type 2 diabetes mellitus with other diabetic ophthalmic complication; H40.9 Unspecified glaucoma; E03.9 Hypothyroidism, unspecified; Z87.891 Personal history of nicotine dependence ==

== ENCOUNTER → 2018-12-05 | Outpatient (CLI) | payer OTHER | LOC: M.ULTRA 12:25 | DX: I73.9 Peripheral vascular disease, unspecified (principal) ==

== ENCOUNTER → 2018-12-17 | Outpatient (CLI) | payer OTHER ==
[~2018-12-17] VITALS: Ht 149.9 cm; Wt 54.4 kg
[2018-12-17 14:37] VITALS: BP 191/77
== END ==
LOC: M.INT 13:48
DX: L03.116 Cellulitis of left lower limb (principal); I73.9 Peripheral vascular disease, unspecified; E11.621 Type 2 diabetes mellitus with foot ulcer; Z79.84 Long term (current) use of oral hypoglycemic drugs; Z79.899 Other long term (current) drug therapy; Z88.8 Allergy status to other drugs, medicaments and biological substances; Z88.2 Allergy status to sulfonamides; Z88.1 Allergy status to other antibiotic agents; Z91.040 Latex allergy status

== ENCOUNTER → 2018-12-27 | Outpatient (CLI) | payer OTHER ==
[2018-12-27 10:59] VITALS: BP 137/68
== END ==
LOC: M.CT 08:07
DX: I73.9 Peripheral vascular disease, unspecified (principal)

== ENCOUNTER → 2019-01-07 | Outpatient (CLI) | payer OTHER | LOC: M.CT 11:30 | DX: I70.213 Atherosclerosis of native arteries of extremities with intermittent claudication, bilateral legs (principal); I70.1 Atherosclerosis of renal artery; I70.8 Atherosclerosis of other arteries; I70.0 Atherosclerosis of aorta; N28.1 Cyst of kidney, acquired; J98.4 Other disorders of lung; K76.89 Other specified diseases of liver; N85.8 Other specified noninflammatory disorders of uterus; M25.78 Osteophyte, vertebrae ==

== ENCOUNTER → 2019-02-04 | Outpatient (CLI) | payer OTHER | LOC: M.WC 09:44 | DX: E11.622 Type 2 diabetes mellitus with other skin ulcer (principal); I70.233 Atherosclerosis of native arteries of right leg with ulceration of ankle; L97.311 Non-pressure chronic ulcer of right ankle limited to breakdown of skin; T63.331D Toxic effect of venom of brown recluse spider, accidental (unintentional), subsequent encounter; E11.39 Type 2 diabetes mellitus with other diabetic ophthalmic complication; H40.9 Unspecified glaucoma; H42 Glaucoma in diseases classified elsewhere; E03.9 Hypothyroidism, unspecified; I87.2 Venous insufficiency (chronic) (peripheral); Z87.891 Personal history of nicotine dependence ==

== ENCOUNTER → 2019-02-12 | Outpatient (CLI) | payer OTHER | LOC: M.WC 02-11 04:58 | DX: E11.622 Type 2 diabetes mellitus with other skin ulcer (principal); I70.233 Atherosclerosis of native arteries of right leg with ulceration of ankle; L97.312 Non-pressure chronic ulcer of right ankle with fat layer exposed; E11.39 Type 2 diabetes mellitus with other diabetic ophthalmic complication; H40.9 Unspecified glaucoma; E03.9 Hypothyroidism, unspecified; I87.2 Venous insufficiency (chronic) (peripheral); I10 Essential (primary) hypertension; Z87.891 Personal history of nicotine dependence ==

== ENCOUNTER → 2019-02-19 | Outpatient (CLI) | payer OTHER | LOC: M.WC 05:08 | DX: E11.622 Type 2 diabetes mellitus with other skin ulcer (principal); I70.233 Atherosclerosis of native arteries of right leg with ulceration of ankle; L97.311 Non-pressure chronic ulcer of right ankle limited to breakdown of skin; T63.331D Toxic effect of venom of brown recluse spider, accidental (unintentional), subsequent encounter; E11.39 Type 2 diabetes mellitus with other diabetic ophthalmic complication; H40.9 Unspecified glaucoma; E03.9 Hypothyroidism, unspecified; I10 Essential (primary) hypertension; Z87.891 Personal history of nicotine dependence ==

== ENCOUNTER → 2019-02-26 | Outpatient (CLI) | payer OTHER | LOC: M.ULTRA 10:06 | DX: N28.1 Cyst of kidney, acquired (principal) ==

== ENCOUNTER → 2019-02-28 | Outpatient (CLI) | payer OTHER | LOC: M.WC 04:54 | DX: I70.233 Atherosclerosis of native arteries of right leg with ulceration of ankle (principal); L97.311 Non-pressure chronic ulcer of right ankle limited to breakdown of skin; T63.331D Toxic effect of venom of brown recluse spider, accidental (unintentional), subsequent encounter; E11.39 Type 2 diabetes mellitus with other diabetic ophthalmic complication; H40.9 Unspecified glaucoma; E03.9 Hypothyroidism, unspecified; I10 Essential (primary) hypertension; I87.2 Venous insufficiency (chronic) (peripheral); Z87.891 Personal history of nicotine dependence ==

== ENCOUNTER → 2019-03-12 | Outpatient (CLI) | payer OTHER | LOC: M.WC 05:18 | DX: E11.622 Type 2 diabetes mellitus with other skin ulcer (principal); I70.233 Atherosclerosis of native arteries of right leg with ulceration of ankle; L97.311 Non-pressure chronic ulcer of right ankle limited to breakdown of skin; T63.331D Toxic effect of venom of brown recluse spider, accidental (unintentional), subsequent encounter; E11.39 Type 2 diabetes mellitus with other diabetic ophthalmic complication; H40.9 Unspecified glaucoma; E03.9 Hypothyroidism, unspecified; I10 Essential (primary) hypertension; Z87.891 Personal history of nicotine dependence ==

== ENCOUNTER → 2019-03-19 | Outpatient (CLI) | payer OTHER | LOC: M.WC 04:59 | DX: E11.622 Type 2 diabetes mellitus with other skin ulcer (principal); I70.233 Atherosclerosis of native arteries of right leg with ulceration of ankle; L97.311 Non-pressure chronic ulcer of right ankle limited to breakdown of skin; T63.331D Toxic effect of venom of brown recluse spider, accidental (unintentional), subsequent encounter; E11.39 Type 2 diabetes mellitus with other diabetic ophthalmic complication; H40.9 Unspecified glaucoma; E03.9 Hypothyroidism, unspecified; I10 Essential (primary) hypertension; Z87.891 Personal history of nicotine dependence ==

== ENCOUNTER → 2019-03-26 | Outpatient (CLI) | payer OTHER | LOC: M.WC 03:33 | DX: E11.622 Type 2 diabetes mellitus with other skin ulcer (principal); I70.233 Atherosclerosis of native arteries of right leg with ulceration of ankle; L97.311 Non-pressure chronic ulcer of right ankle limited to breakdown of skin; T63.331D Toxic effect of venom of brown recluse spider, accidental (unintentional), subsequent encounter; E11.39 Type 2 diabetes mellitus with other diabetic ophthalmic complication; H40.9 Unspecified glaucoma; E03.9 Hypothyroidism, unspecified; I10 Essential (primary) hypertension; Z87.891 Personal history of nicotine dependence ==

== ENCOUNTER → 2019-04-02 | Outpatient (CLI) | payer OTHER | LOC: M.WC 05:26 | DX: E11.622 Type 2 diabetes mellitus with other skin ulcer (principal); I70.233 Atherosclerosis of native arteries of right leg with ulceration of ankle; L97.311 Non-pressure chronic ulcer of right ankle limited to breakdown of skin; T63.331D Toxic effect of venom of brown recluse spider, accidental (unintentional), subsequent encounter; E11.39 Type 2 diabetes mellitus with other diabetic ophthalmic complication; H40.9 Unspecified glaucoma; E03.9 Hypothyroidism, unspecified; I10 Essential (primary) hypertension; Z87.891 Personal history of nicotine dependence ==

== ENCOUNTER → 2019-04-09 | Outpatient (CLI) | payer OTHER | LOC: M.WC 05:26 | DX: E11.622 Type 2 diabetes mellitus with other skin ulcer (principal); I70.233 Atherosclerosis of native arteries of right leg with ulceration of ankle; L97.311 Non-pressure chronic ulcer of right ankle limited to breakdown of skin; T63.331D Toxic effect of venom of brown recluse spider, accidental (unintentional), subsequent encounter; E11.39 Type 2 diabetes mellitus with other diabetic ophthalmic complication; H40.9 Unspecified glaucoma; E03.9 Hypothyroidism, unspecified; I10 Essential (primary) hypertension; I87.2 Venous insufficiency (chronic) (peripheral); Z87.891 Personal history of nicotine dependence ==

== ENCOUNTER → 2019-04-16 | Outpatient (CLI) | payer OTHER | LOC: M.WC 05:12 | DX: E11.622 Type 2 diabetes mellitus with other skin ulcer (principal); I70.233 Atherosclerosis of native arteries of right leg with ulceration of ankle; L97.312 Non-pressure chronic ulcer of right ankle with fat layer exposed; T63.331D Toxic effect of venom of brown recluse spider, accidental (unintentional), subsequent encounter; E11.39 Type 2 diabetes mellitus with other diabetic ophthalmic complication; H40.9 Unspecified glaucoma; E03.9 Hypothyroidism, unspecified; I10 Essential (primary) hypertension; Z87.891 Personal history of nicotine dependence ==

== ENCOUNTER → 2019-04-25 | Outpatient (CLI) | payer OTHER | LOC: M.WC 05:08 | DX: E11.622 Type 2 diabetes mellitus with other skin ulcer (principal); I70.233 Atherosclerosis of native arteries of right leg with ulceration of ankle; L97.312 Non-pressure chronic ulcer of right ankle with fat layer exposed; T63.331D Toxic effect of venom of brown recluse spider, accidental (unintentional), subsequent encounter; E11.39 Type 2 diabetes mellitus with other diabetic ophthalmic complication; H40.9 Unspecified glaucoma; E03.9 Hypothyroidism, unspecified; I10 Essential (primary) hypertension; I87.2 Venous insufficiency (chronic) (peripheral); Z87.891 Personal history of nicotine dependence ==

== ENCOUNTER 2020-08-23 07:20 | Observation (INO) | payer OTHER ==
[~2020-08-23] VITALS: Ht 149.9 cm; Wt 59.0 kg
[2020-08-23] VITALS (11 sets, daily range): BP systolic 123–162; BP diastolic 58–77
--- NOTE | ~2020-08-23 | H ---
[address] [address] HISTORY AND PHYSICAL Name: LUISANA HANNA Room: [address] Angie MSanazRSanaz#: [id number] Admission: 08/23/20 Attend Phys: Carmine Huddleston MD, F Discharge: 08/24/20 Date of : 37 Report #: [id number] THIS REPORT FOR: cc: Alison Escalante MD, Lin W. MD ~ [facility],Medical Records Staff Please refer to the History and Physical performed in the physician's office. By: [id number] Records Staff [facility] /KAT
[2020-08-23 08:20] LABS: HEMATOCRIT 37.2 % (37.0-47.0); HEMOGLOBIN 12.6 gm/dL (12.0-15.0); MCH 30.3 pg (26.0-34.0); MCHC 33.9 g/dL (28.0-37.0); MCV 89.2 fL (80.0-100.0); MPV 7.6 fl. (7.2-11.1); RBC 4.17 mil/uL (4.20-5.00); RDW-CV 15.5 % (10.5-14.5); WBC 7.5 thou/uL (4.0-11.0)
[2020-08-23 08:29] LABS: ANION GAP 9 mmol/L (7-16); BUN 11 mg/dL (7-18); CALCIUM 9.3 mg/dL (8.5-10.1); CHLORIDE 98 mmol/L (98-107); CO2 28 mmol/L (21-32); CREATININE 0.9 mg/dL (0.6-1.3); GLUCOSE 126 mg/dL (70-99); POTASSIUM 3.6 mmol/L (3.5-5.1); SODIUM 135 mmol/L (136-145)
[2020-08-23 08:31] LABS: APTT 24.8 Seconds (25.0-31.3); PROTIME 10.5 Seconds (9.20-11.50)
[2020-08-23 08:34] LABS: ALBUMIN 3.8 g/dL (3.4-5.0); ALKALINE PHOSPHATASE 67 U/L (46-116); CHOLESTEROL 198 mg/dL (<200); HDL CHOLESTEROL 41 mg/dL (>40); LDL CHOLESTEROL 128 mg/dL (<100); SERUM ASSESSMENT Clear; SGOT 17 U/L (15-37); SGPT 16 U/L (30-65); TC:HDL 4.8 Ratio (Not establshd); TOTAL BILIRUBIN 0.4 mg/dL (<0.1-1.0); TOTAL PROTEIN 8.1 g/dL (6.4-8.2); TRIGLYCERIDE 147 mg/dL (<150); VLDL 29 mg/dL (<40)
--- NOTE | 2020-08-23 11:44 | EKG ---
[place] [address] ELECTROCARDIOGRAM REPORT Name: LUISANA HANNA Room: [address] M.R.#: [id number] Admission: 08/23/20 Attend Phys: Carmine Huddleston MD Discharge: Date of : 37 Date of Service: 08/23/20 0857 Report #: [id number] THIS REPORT FOR: //name// [facility] Test Date: 2020-08-23 Test Time: 08:57:27 Pat Name: LUISANA HANNA Department: Room: [facility] Gender: F Sterile Preparation Technician: : 1935 Requested By: Carmine Huddleston Order Number: [id number] Juanita MD: Carmine Huddleston Measurements Intervals [place] Rate: 96 P: 87 [place]: 179 QRS: 37 QRSD: 98 T: 174 QT: 321 QTc: 406 Interpretive Statements Sinus rhythm nonspecific st segment changes Compared to ECG 03/29/2018 07:38:03 Left ventricular hypertrophy no longer present Electronically Signed On 08-23-2020 11:44:22 ROADSIDE MECHANIC by Carmine Huddleston [email or web address] <ELECTRONICALLY SIGNED> By: Carmine Huddleston MD, [facility] 08/23/20 1144 0857 0857 Carmine Huddleston MD, [facility] /EPI
--- NOTE | 2020-08-23 11:45 | EKG ---
[place] [address] ELECTROCARDIOGRAM REPORT Name: LUISANA HANNAMARIAN Room: [address] M.R.#: [id number] Admission: 08/23/20 Attend Phys: Carmine Huddleston MD Discharge: Date of : 37 Date of Service: 08/23/20 0858 Report #: [id number] THIS REPORT FOR: //name// [facility] Test Date: 2020-08-23 Test Time: 08:58:33 Pat Name: LUISANA HANNA Department: Room: [place] [address] Gender: F Programming Coordinator: : 1935 Requested By: Carmine Huddleston Order Number: [id number] Juanita MD: Carmine Huddleston Measurements Intervals [place] Rate: 95 P: 74 [place]: 177 QRS: 37 QRSD: 94 T: 162 QT: 333 QTc: 419 Interpretive Statements Sinus rhythm Consider left atrial enlargement Repol abnrm suggests ischemia, lateral leads ST elevation, consider anterior injury Compared to ECG 08/23/2020 08:57:27 Possible ischemia now present Myocardial infarct finding still present Electronically Signed On 08-23-2020 11:45:06 FIRST COOK by Carmine Huddleston [email or web address] <ELECTRONICALLY SIGNED> By: Carmine Huddleston MD, [facility] 08/23/20 1145 0858 0858 Carmine Huddleston MD, [facility] /EPI
--- NOTE | 2020-08-23 14:58 | EKG ---
[place] [address] ELECTROCARDIOGRAM REPORT Name: LUISANA HANNA Room: [address] M.R.#: [id number] Admission: 08/23/20 Attend Phys: Carmine Huddleston MD Discharge: Date of : 37 Date of Service: 08/23/20 1139 Report #: [id number] THIS REPORT FOR: //name// [facility] Test Date: 2020-08-23 Test Time: 11:39:56 Pat Name: LUISANA HANNA Department: Room: [facility] Gender: F Industrial Waste Inspector: : 1935 Requested By: Carmine Huddleston Order Number: [id number] Juanita MD: Carmine Huddleston Measurements Intervals [place] Rate: 83 P: 56 DE: 191 QRS: 32 QRSD: 102 T: 125 QT: 385 QTc: 453 Interpretive Statements Sinus rhythm nonspecific st segment changes Compared to ECG 08/23/2020 08:58:33 no change Electronically Signed On 08-23-2020 14:58:46 SHEAR GRINDER OPERATOR by Carmine Huddleston [email or web address] <ELECTRONICALLY SIGNED> By: Carmine Huddleston MD, [facility] 08/23/20 1458 1139 1139 Carmine Huddleston MD, [facility] /EPI
--- NOTE | 2020-08-23 17:16 | CARD ---
[address] [address] CARDIAC CATH REPORT Name: LUISANA HANNA Room: [address] Angie M.R.#: [id number] Admission: 08/23/20 Attend Phys: Carmine Huddleston MD, F Discharge: Date of : 36 Report #: [id number] THIS REPORT FOR: //name// cc: Alison Escalante MD, Lin W. MD ~ APPROVED REPORT Study performed: 08/23/2020 08:53:32 Patient Details Patient Status: Out-Patient Room #: The patient is a 85 year-old female Event Personnel Carmine Huddleston Inspector And Mender, Genaro Alan Kramer, Jessie RTR Monitor, Rhonda Harvey RN life insurance underwriter Performed Art Access - R radial artery Left Heart Cath w/or w/o Coronaries SARAH Place w/wo Plasty Single RCA Hemostasis with Hemoband Indication Unstable angina , Positive stress test, Chest pain Risk Factors Peripheral Vascular Disease, Hypercholesterolemia, Hypertension, Diabetes Admission/Lab Medications/Medications given during procedure Glycoprotein IllbIlla Inhibitors, Platelet Aff. Inhib., Heparin Unfract., Oxygen Nasal cannula 2 l per min, 0.9% Sodium Chloride IV 75 ml per hr, Midazolam (Versed) IV 1 mg, Lidocaine Subcut 5 ml, Nitroglycerin IA 200 mcg, Verapamil IA 2.5 mg, Heparin IV 2900 units, 0.9% Sodium Chloride IV 125 ml per hr, Heparin IV 1000 units, Fentanyl IV 50 mcg, Plavix PO 600 mg Procedure Narrative The patient was brought electively to the Cardiac Catheterization Laboratory and was prepped and draped in a sterile manner. The right wrist was infiltrated with 2% Lidocaine subcutaneous anesthesia. A Slender Glidesheath sheath was inserted into the right radial artery. Coronary angiography was performed using coronary diagnostic catheters. The right coronary system [place] [address] CARDIAC CATH REPORT Name: LUISANA HANNA Room: [address] M.R.#: [id number] Admission: 08/23/20 Attend Phys: Carmine Huddleston MD, F Discharge: Date of : 37 Report #: [id number] a Diagnostic 6 Fr JR 4 catheter. The left coronary system was accessed and visualized with a Diagnostic 6 Fr JL 4 catheter. The left ventricle was accessed and visualized with a Diagnostic 6 Fr JR4 catheter. Left ventricular/Aortic Valve gradient assessed via catheter pullback. Closure device was deployed with a 6 Fr Reg Vasc Band. The patient tolerated the procedure well and there were no complications associated with the procedure. There was no hematoma. Intraoperative Conscious Sedation Sedation start time: 09:51 Case end Time: 10:45 Fentanyl 50 mcg Versed 2 mg Fluoro Time: 11.2 minutes Dose: DAP 01000 cGycm2 1113 mGy Contrast Type and Amount: Omnipaque 225 ml Coronary Angiography The patient's coronary anatomy is right dominant. Diagnostic Cath Left Main 0% stenosis LAD 100% chronically occluded proximally, with distal collaterals from the RCA and circumflex artery. Circumflex 40% mid and 30% distal stenosis noted Right Coronary 90% proximal, 70% mid, and 95% stenosis distally prior to the bifurcation Left Ventriculography Left Ventriculography was not performed. Hemodynamics The aortic pressure is 87/46 mmHg with a mean of 63 mmHg. The left ventricular pressure is 89/10 mmHg with a mean of mmHg. The left ventricular end diastolic pressure is 12 mmHg. There was no gradient across the aortic valve upon pullback. Pullback from the left ventricle to the aorta revealed no gradient across the aortic valve. PCI Technique Lesion Anticoagulation was achieved with Heparin. bolus of iv aggrastat given Patient was preloaded with Plavix. Percutaneous coronary intervention was performed on the distal right coronary artery. The lesion stenosis prior to intervention was 95% with SHABBIR 3 flow. A 6FR JCR 4 100CM Guide Catheter was used to engage the right ostium. A IG: [place] [address] CARDIAC CATH REPORT Name: LUISANA HANNA Room: [address] M.R.#: [id number] Admission: 08/23/20 Attend Phys: Carmine Huddleston MD, F Discharge: Date of : 37 Report #: [id number] BMW 190cm Interventional Guidewire was used to cross the lesion. BALLOON DILATION A Balloon catheter Mini Trek RX 2.0 X 8 was inserted and inflated up to 8.00atm for 8seconds. Repeat angiography revealed the following post-dilatation results: 40% stenosis. Additional Inflation: 10.00atm for 6seconds. Additional Inflation: 10.00atm for 11seconds. Unable to cannulate rca with 3drc guide which lead to damping of pressure. Used a 6 fr jcr4 guide which also lead to damping of pressure, requiring withdrawing the guide from the ostium. Consider using a guide with side holes in the future. STENT DEPLOYMENT A drug-eluting stent [place] RX Stent 2.54A39iv was inserted and inflated up to 8.00atm for 13seconds. Repeat angiography revealed the following post-stent deployment results: 0% stenosis. Additional Inflation: 11.00atm for 15seconds. Additional Inflation: 11.00atm for 10seconds. Final angiography reveals 0 % stenosis with SHABBIR 3 flow. PCI Technique Lesion 2 Percutaneous Coronary Intervention was performed on the proximal and mid right coronary artery. Patient was preloaded with Plavix. Percutaneous coronary intervention was performed on the proximal and mid rca. The lesion stenosis prior to intervention was 90% with SHABBIR 3 flow. A 6FR JCR 4 100CM Guide Catheter was used to engage the right ostium. A IG: [employer] 190cm Interventional Guidewire was used to cross the lesion. Balloon Dilation A Balloon catheter Mini Trek RX 2.0 X 8 was inserted and inflated up to 12.00atm for 14seconds. Repeat angiography revealed the following post-dilatation results: 40% stenosis. Stent Deployment A drug-eluting stent [place] RX Stent 2.5X38mm was inserted and inflated up to 13.00atm for 21seconds. Repeat angiography revealed the following post-stent deployment results: 0% stenosis. Additional Inflation: 15.00atm for 16seconds. Final angiography reveals 0 % stenosis with SHABBIR [address] flow[address] Conclusion [address] [address] CARDIAC CATH REPORT Name: LUISANA HANNA Room: [address] Angie ArroyoSanaz#: [id number] Admission: 08/23/20 Attend Phys: Carmine Huddleston MD, F Discharge: Date of : 37 Report #: [id number] 1. Chronic occlusion of the proximal lad that filled distally by collaterals from the rca and circumflex artery. 2. 90% proximal, 70% mid, and 95% distal stenosis of the rca 3. successful placemnt of drug eluing stents in the distal rca, and proximal rca Recommendations consider attempts at PTCA of the chronically occluded LAD if the patient continues to have angina despite optimal medical therapy <ELECTRONICALLY SIGNED> By: Carmine Huddleston MD, FAC 08/23/20 1716 15 171Carmine Huddleston MD, FACC /INF
--- NOTE | 2020-08-23 18:45 | NUR ---
PT ADMITTED TO ROOM FROM 201 FROM MAORI LIAISON ADVISER. 2 STENTS PLACED IN RCA THROUGH RIGHT RADIAL. AOX4,ABLE TO ANSWER APPROPRIATELY. VSS ON RA. SR ON MONITOR.RADIAL SITE COMPLETELY DECOMPRESSED,BANDAGE IN PLACE,CDI. PT OREINTED TO ROOM,EDUCATED ON PLAN OF CARE,TREATMENTS AND ACTIVITY. MELLY
[2020-08-24 01:02] VITALS: BP 137/59
[2020-08-24 04:54] VITALS: BP 136/67
[2020-08-24 05:20] LABS: HEMATOCRIT 31.6 % (37.0-47.0); HEMOGLOBIN 10.9 gm/dL (12.0-15.0); MCH 31.1 pg (26.0-34.0); MCHC 34.4 g/dL (28.0-37.0); MCV 90.5 fL (80.0-100.0); MPV 7.9 fl. (7.2-11.1); RBC 3.49 mil/uL (4.20-5.00); RDW-CV 15.4 % (10.5-14.5); WBC 6.9 thou/uL (4.0-11.0)
--- NOTE | 2020-08-24 05:32 | NUR ---
VITALS STABLE, AFEBRILE. PT DENIES PAIN, SLEPT THROUGH THE NIGHT. REMAINS ON RA. PULSES ANSELMO AND STRONG. WILL CONTINUE MONITORING FOR THE REMAINDER OF SHIFT.
[2020-08-24 05:43] LABS: CALCIUM 8.2 mg/dL (8.5-10.1); CREATININE 0.7 mg/dL (0.6-1.3); POTASSIUM 3.8 mmol/L (3.5-5.1); TROPONIN-I LEVEL 0.55 ng/mL (<0.06)
[2020-08-24] MEDS ORDERED: PLAVIX 75 MG TA75 MG PO (09:12)
[2020-08-24] MEDS ORDERED: ASPIR 8181 MG PO (09:18)
[2020-08-24] MEDS ORDERED: LIPITOR40 MG PO (09:21)
--- NOTE | 2020-08-24 10:44 | D ---
[facility] [address] [place] [address] DISCHARGE SUMMARY Name: LUISANA HANNA Room: [address] LincolnR.#: [id number] Admission: 08/23/20 Attend Phys: Carmine Huddleston MD, F Discharge: Date of : 37 Report #: [id number] THIS REPORT FOR: //name// cc: Alison Escalante MD, Lin W. MD ~ CC: Carmine Escalante MD DATE OF SERVICE: 08/24/2020 DISCHARGE DIAGNOSES: 1. Crescendo angina. 2. Coronary artery disease. 3. Type 2 diabetes mellitus. 4. Hypertension. 5. Hyperlipidemia. 6. Mild carotid stenosis. PROCEDURES: Left heart catheterization with placement of 2 drug-eluting stents in the right coronary artery via the radial approach. CONSULTANTS: None. HISTORY OF PRESENT ILLNESS: The patient is an 85-year-old white female who was brought to the outpatient department to undergo cardiac catheterization. The patient has a history of diabetes, hypertension. She has a history of hyperlipidemia, but could not tolerate statin drugs in the past. She has a history of a nonhealing ulcer on her left foot that required a skin graft. Angiogram was performed, but the vessels apparently were not amenable to stenting. Currently, she has a wound on her right foot and is in need of repeat angiogram. [facility]. She does get pain in her legs with ambulation. Recently, however, with minimal exertion, she develops a tightness his in chest, it goes away with rest. It goes into her arms and makes her short of breath. I saw her in the office in May and felt her symptoms were consistent with angina. She underwent a stress echocardiogram and complained of shortness of breath. She did develop ischemic ST segment changes. Echocardiogram showed an ejection fraction of 40% with apical and distal anterior akinesia. She also underwent vascular screening. There is mild carotid stenosis. No abdominal aneurysm. ABIs were abnormal. I would recommend that she undergo cardiac catheterization. PAST MEDICAL HISTORY: Significant for rotator cuff surgery, tubal ligation, diabetes, hypertension, hyperlipidemia, PAD. MEDICATIONS: On admission, she is no longer on metformin. [place] [address] DISCHARGE SUMMARY Name: LUISANA HANNA Room: [address] M..#: [id number] Admission: 08/23/20 Attend Phys: Carmine Huddleston MD, F Discharge: Date of : 37 Report #: [id number] sugars at home. She is no longer on insulin. She takes amlodipine, Plavix because of PAD; hydrochlorothiazide; eye drops for glaucoma; Synthroid; losartan; Toprol; oxybutynin for incontinence. ALLERGIES: SHE HAS INTOLERANCE TO MORPHINE, STATIN DRUGS, PENICILLIN, AND SULFA DRUGS. PHYSICAL EXAMINATION: GENERAL: Elderly female, appeared in no acute distress. VITAL SIGNS: Blood pressure 140/70, pulse is 70. CHEST: Clear to auscultation. CARDIOVASCULAR: Regular rate and rhythm. ABDOMEN: Soft. EXTREMITIES: Had no edema. SKIN: Warm and dry. NEUROLOGIC: Nonfocal. Her ECG on admission showed a sinus rhythm with nonspecific ST and T-wave changes. LABORATORY DATA: Sodium 135, potassium 3.6, BUN 11, creatinine 0.9. Her liver function studies were normal. Cholesterol 198, triglyceride 147, HDL 41, LDL 128. Her white blood cell count 7.5, hemoglobin 12.6. HOSPITAL COURSE: The patient was admitted to the outpatient department. I performed a left heart catheterization from the right radial artery. No ventriculogram was performed. Her LVEDP was 12. The LAD was chronically occluded proximally and filled distally by both bridging collaterals and retrograde collaterals from the right coronary artery. The circumflex had only 40% stenosis. The right coronary was a dominant vessel, had a 90% proximal stenosis, 70% mid stenosis and a 95% distal stenosis prior to the bifurcation. She was then given Aggrastat and heparin. I performed balloon angioplasty and placed a single drug-eluting stent in the distal right coronary artery. I then placed a long drug-eluting stent in the proximal and mid right coronary artery. She tolerated the procedure well and had no further chest pain, shortness of breath, arrhythmias. The sheath was removed and there was no hematoma in the right wrist. Prior to discharge, she is ambulating, had no further complaints. She was discharged on her home medications. In addition, I recommended she take aspirin 81 mg a day and she was started on Lipitor 40 mg a day. I do recommend she had complaints of myalgia and that she contact my office. She will need followup liver function studies in the future. I have recommended she continue to check her blood sugars at home. She was discharged to return to care of Dr. Alison Escalante for routine medical care. She will continue to go to [facility] and may need angioplasty of her legs. Her prognosis is guarded. If she continues to have chest pain refractory to optimal medical therapy, I will consider attempts at angioplasty of the chronic occluded LAD. Her prognosis is [facility] [address] [place] [address] DISCHARGE SUMMARY Name: LUISANA HANNA Room: [address] DinaSanaz#: [id number] Admission: 08/23/20 Attend Phys: Carmine Huddleston MD, F Discharge: Date of : 37 Report #: [id number] guarded due to her advanced age and diffuse coronary artery disease. I did recommend she start an exercise program and maintain tight control of her diabetes. She was to contact my office if she had recurrent chest pain. I made an appointment to return to see me in the clinic in 6 weeks for followup. <ELECTRONICALLY SIGNED> By: Carmine Huddleston MD, FACC 08/24/20 1044 0904 [id number] Huddleston MD, FACC /nt
--- NOTE | 2020-08-24 11:07 | EKG ---
[place] [address] ELECTROCARDIOGRAM REPORT Name: LUISANA HANNAMARIAN Room: [address] M.R.#: [id number] Admission: 08/23/20 Attend Phys: Carmine Huddleston MD Discharge: Date of : 37 Date of Service: 08/24/20 0855 Report #: [id number] THIS REPORT FOR: //name// [facility] Test Date: 2020-08-24 Test Time: 08:55:58 Pat Name: LUISANA HANNA Department: Room: [address] Gender: F Tape Librarian: CS : [id number] Requested By: Carmine Huddleston Order Number: [id number] Reading MD: Carmine Huddleston Measurements Intervals [place] Rate: 83 P: 50 ME: 178 QRS: 22 QRSD: 82 T: 139 QT: 379 QTc: 446 Interpretive Statements Sinus rhythm poor r wave progression Repol abnrm suggests ischemia, lateral leads Minimal ST elevation, anterior leads Compared to ECG 08/23/2020 11:39:56 no change Electronically Signed On 08-24-2020 11:07:39 AQUATIC PERFORMER by Carmine Huddleston [email or web address] <ELECTRONICALLY SIGNED> By: Carmine Huddleston MD, [facility] 08/24/20 1107 0855 0855 Carmine Huddleston MD, [facility] /EPI
[2020-08-24 13:08] VITALS: BP 121/56
--- NOTE | 2020-08-24 13:54 | NUR ---
PT DCD TO HOME IN STABLE CONDITION. DC INSTRUCTIONS,MEDICATIONS,FOLLOW UP APPOINTMENTS,SITE CARE AND ACTIVITY REVEIWED WITH PT AND PT REPORTS UNDERSTANDING WITHOUT FURTHER QUESTIONS. PT TAKEN BY WC TO PERSONAL VEHICLE ACCOMPANIED BY STAFF WITH ALL OF BELONGINGS.
== END 2020-08-24 13:50 | disposition home or self-care (01) ==
LOC: M.CL 07:20 → M.TBA-CV 10:38 → M.2W 10:38
PROVIDERS: ADMIT Internal Medicine Cardiovascular Disease; ATTEND Internal Medicine Cardiovascular Disease
DX: I25.110 Atherosclerotic heart disease of native coronary artery with unstable angina pectoris (principal); E11.9 Type 2 diabetes mellitus without complications; I10 Essential (primary) hypertension; E78.00 Pure hypercholesterolemia, unspecified; I49.3 Ventricular premature depolarization